=== PATIENT | male | born 2000 ===

== ENCOUNTER 2023-11-09 06:04 | Emergency (ER) | payer OTHER, SELFPAY ==
[2023-11-09 06:10] VITALS: BP 146/76; PULSE 58; RESP 16; TEMP 36.4; O2SAT 99
--- NOTE | 2023-11-09 07:42 | ED.DENTAL ---
HPI - Dental/Oral General Chief complaint: Dental/Oral Stated complaint: bottom left dental pain Time Seen by Provider: 11/09/23 06:58 History of Present Illness HPI Narrative: Patient is a 23-year-old male who presents ER with left-sided dental pain. Tooth number 17. Has a chronic fracture to the tooth. He went to dentist where they manipulated a little that. He then developed pain after that and has been worsening over last week. Throbbing in nature. No drainage. No fevers or chills or sweats. No facial swelling. He is supposed to see an oral surgeon for extraction. Related Data Allergies Allergy/AdvReac Type Severity Reaction Status Date / Time No Known Allergies Allergy Verified 11/09/23 06:14 Review of Systems Constitutional: Constitutional: Reports no additional constitutional complaints ENT: Denies dysphagia and Denies sore throat Comments: dental pain Gastrointestinal: Gastrointestinal: Denies nausea and Denies vomiting PMFSH Past Medical History Medical History Attention Deficit Hyperactivity Disorder (ADHD) Social History Social History Smoking status: Unknown if ever smoked Tobacco type: e-cigarettes/vaping Alcohol intake: never Substance use: current Substance use type: marijuana Lack of Transportation: No Lack of Food: Often True Current Housing: I Have Housing Concerned About Future Housing: No Difficulty Paying Gas/Electric Bills: YES Difficulty Paying for Meds: No Currently Unemployed: YES Education: High School Diploma/GED Difficulty w/ Childcare or Family Care: No Living arrangements: with family Occupation/Education: unemployed Exam Narrative: GENERAL: Well-appearing, well-nourished, and in no acute distress. HEAD: Normocephalic, atraumatic. ENT: Mucous membranes moist. Fracture to tooth number 16 and 17. No facial swelling. No drainable abscess. NECK: Supple. HEART: Regular rate and rhythm. No murmur heard. Normal peripheral pulses. NEURO: Alert and oriented x3. Course Course Emergency Course: Will start patient on oral antibiotic and also give short course pain control. Recommend oral dental lax to help with discomfort from food and water. Vital Signs Vital signs: Vital Signs Temperature 97.6 F 11/09/23 06:10 Pulse Rate 58 L 11/09/23 06:10 Respiratory Rate 16 11/09/23 06:10 Blood Pressure 146/76 H 11/09/23 06:10 Pulse Oximetry 99 11/09/23 06:10 Oxygen Delivery Room Air 11/09/23 06:10 Temperature 97.6 F 11/09/23 06:10 Pulse Rate 58 L 11/09/23 06:10 Respiratory Rate 16 11/09/23 06:10 Blood Pressure 146/76 H 11/09/23 06:10 Pulse Oximetry 99 11/09/23 06:10 Oxygen Delivery Room Air 11/09/23 06:10 Discharge Plan Discharge Clinical Impression: Pain, dental Patient Disposition: Home, Self-Care Condition: Stable Instructions: Toothache (ED) Prescriptions: New amoxicillin-pot clavulanate 875-125 mg tablet 1 tablet PO Q12H Qty: 14 0RF tramadol 50 mg tablet 50 mg PO Q6H PRN (Reason: pain) Qty: 10 0RF Follow-up/Referrals: Pramod Zheng APRN [Primary Care Provider] - Stand Alone Forms: Work/School Release IP
== END 2023-11-09 08:00 | disposition home or self-care (01) ==
PROVIDERS: Emergency Provider Emergency Medicine; PCP Nurse Practitioner Family
DX: K08.89 Other specified disorders of teeth and supporting structures (principal); F90.9 Attention-deficit hyperactivity disorder, unspecified type
CPT/HCPCS: 99283